=== PATIENT | female | born 1945 | race Caucasian/White ===

== ENCOUNTER 2017-04-29 16:30 | Inpatient (IN) ==
[2017-04-29] MEDS ORDERED: ALBUTEROL/IPRATROPIUM 3 ML NEB RESP TX PRN (17:11)
[2017-04-29] MEDS ORDERED: HYOSCYAMINE 0.125 MG TABLET PO PRN (17:15)
[2017-04-29] MEDS: DEXTROSE 5% NACL 0.45% 1,000 ML IV SCH (17:33)
[2017-04-29] MEDS ORDERED: ESTRADIOL 0.1 MG PATCH (1X WK) TRANSDERM SCH (18:00)
[2017-04-29] MEDS: MEROPENEM 1,000 MG in SYRINGE 1 EACH IV SCH (18:22)
[2017-04-29] MEDS: ONDANSETRON ODT 4 MG TABLET PO SCH (18:22)
[2017-04-29] MEDS: methylPREDNISolone SOD SUC 40 MG/1 ML VIAL IV SCH (18:23)
[2017-04-29 20:19] LABS: Apearance,Urine CLEAR (Clear); Bacteria,Urine Moderate /HPF (Few); Bilirubin,Urine Negative (Negative); Blood, Urine Negative (Negative); Glucose,Urine (UA) Negative (Negative); Ketones,Urine Negative (Negative); Nitrite,Urine Negative (Negative); Protein,Urine Negative; RBC,Urine <1 /HPF (0-4); Squamous Epithelial Cell,Urine Occasional /HPF (0-10); Urine Color Straw (Yellow); Urine Specific Gravity 1.005 (1.001-1.035); Urine Urobilinogen < 2.0 EU/DL (0.2-1.0); WBC,Urine <1 /HPF (0-6)
[2017-04-29] MEDS: ALBUTEROL/IPRATROPIUM 3 ML NEB RESP TX SCH (20:32)
[2017-04-29] MEDS: DOCUSATE SODIUM 100 MG CAPSULE PO SCH (20:50)
[2017-04-29] MEDS: CLORAZEPATE 7.5 MG TABLET PO SCH (20:50)
[2017-04-29] MEDS: TEMAZEPAM 15 MG CAPSULE PO PRN (20:50)
[2017-04-29] MEDS: BUDESONIDE/FORMOTEROL 80-4.5 INHALER 6.9 GM INH SCH (20:50)
[2017-04-29] MEDS: traMADol 50 MG TABLET PO SCH (20:51)
[2017-04-29] MEDS: SERTRALINE 100 MG TABLET PO SCH (20:52)
[2017-04-29] MEDS: ATORVASTATIN 10 MG TABLET PO SCH (20:52)
[2017-04-29 22:12] LABS: Free T4 (Free Thyroxine) 0.87 NG/DL (0.76-1.46); Thyroid Stimulating Hormone 2.7 uIU/ml (0.358-3.74)
[2017-04-29 23:21] LABS: Barbiturates Screen,Urine Negative (Negative); Benzodiazepines Screen,Urine Negative (Negative); Cannabinoid Screen,Urine Negative (Negative); Opiate Screen,Urine Negative (Negative); Phencyclidine Screen,Urine Negative (Negative)
[2017-04-30] MEDS: ONDANSETRON ODT 4 MG TABLET PO SCH ×4 (00:15→18:33)
[2017-04-30] MEDS: ALBUTEROL/IPRATROPIUM 3 ML NEB RESP TX SCH ×4 (00:51→19:42)
[2017-04-30] MEDS: MEROPENEM 1,000 MG in SYRINGE 1 EACH IV SCH ×3 (02:23→18:34)
[2017-04-30] MEDS: methylPREDNISolone SOD SUC 40 MG/1 ML VIAL IV SCH ×2 (05:31→16:30)
[2017-04-30 06:55] LABS: Basophils % 0.2 % (0.0-0.8); Eosinophils % 0.1 % (0.00-10.9); Hematocrit 33.9 VOL% (35.7-47.0); Hemoglobin 11.5 GM/DL (12.0-16.0); Immature Granulocytes % 0.4 %; Immature Granulocytes Absolute 0.03 #; Lymphocytes # 1.2 10*3/uL (1.4-4.0); Lymphocytes % 14.4 % (21.3-54.2); Mean Corpuscular HGB Conc 33.9 GM/DL (32-36); Mean Corpuscular Hemoglobin 32 PG (27-34); Mean Corpuscular Volume 92.9 FL (87-102); Monocytes # 0.5 10*3/uL (0.11-0.8); Monocytes % 6.1 % (1.7-12.7); Neutrophils # 6.4 10*3/uL (1.4-7.4); Neutrophils % 78.8 % (38.7-73.9); Platelet Count 271 T/CUMM (130-400); Red Blood Count 3.65 MC/CUMM (3.8-5.5); Red Cell Distribution Width 13.3 % (9.3-17.3); White Blood Count 8.1 T/CUMM (4-12)
[2017-04-30 07:40] LABS: Calcium 8.6 MG/DL (8.5-10.1); Free T4 (Free Thyroxine) 0.8 NG/DL (0.76-1.46); Magnesium 2.2 MG/DL (1.8-2.4); Osmolality,Calculated 276.7 MOS/KG (273-304); Potassium 4.7 MMOL/L (3.5-5.1); Thyroid Stimulating Hormone 2.82 uIU/ml (0.358-3.74)
[2017-04-30] MEDS ORDERED: ESTRADIOL 0.1 MG PATCH (1X WK) TRANSDERM SCH (09:00)
[2017-04-30] MEDS: CLORAZEPATE 7.5 MG TABLET PO SCH ×3 (10:25→21:54)
[2017-04-30] MEDS: PANTOPRAZOLE 40 MG TABLET PO SCH (10:26)
[2017-04-30] MEDS: traMADol 50 MG TABLET PO SCH ×2 (10:26→21:55)
[2017-04-30] MEDS: LEVOTHYROXINE 75 MCG TABLET PO SCH (10:27)
[2017-04-30] MEDS: ISOSORBIDE MONONITRATE 60 MG TABLET PO SCH (10:27)
[2017-04-30] MEDS: MONTELUKAST 10 MG TABLET PO SCH (10:27)
[2017-04-30] MEDS: BUDESONIDE/FORMOTEROL 80-4.5 INHALER 6.9 GM INH SCH ×2 (10:37→21:58)
[2017-04-30] MEDS: FLUTICASONE 50 MCG NASAL SPRAY 16 GM BOTTLE BOTH NARES SCH (10:37)
[2017-04-30] MEDS: DEXTROSE 5% NACL 0.45% 1,000 ML IV SCH (10:39)
[2017-04-30] MEDS ORDERED: GENTAMICIN INJ 80 MG in PREMIX 1 EACH IV ONE (14:00)
[2017-04-30] MEDS ORDERED: BISACODYL 5 MG TABLET PO ONE (21:12)
[2017-04-30] MEDS: TEMAZEPAM 15 MG CAPSULE PO PRN (21:54)
[2017-04-30] MEDS: DOCUSATE SODIUM 100 MG CAPSULE PO SCH (21:55)
[2017-04-30] MEDS: ATORVASTATIN 10 MG TABLET PO SCH (21:55)
[2017-04-30] MEDS: SERTRALINE 100 MG TABLET PO SCH (21:58)
[2017-05-01] MEDS: ONDANSETRON ODT 4 MG TABLET PO SCH ×4 (00:27→17:50)
[2017-05-01] MEDS: ALBUTEROL/IPRATROPIUM 3 ML NEB RESP TX SCH ×4 (00:35→19:51)
[2017-05-01] MEDS: DEXTROSE 5% NACL 0.45% 1,000 ML IV SCH ×2 (02:26→20:33)
[2017-05-01] MEDS: MEROPENEM 1,000 MG in SYRINGE 1 EACH IV SCH ×3 (02:28→18:28)
[2017-05-01] MEDS: methylPREDNISolone SOD SUC 40 MG/1 ML VIAL IV SCH ×2 (06:31→17:49)
[2017-05-01] MEDS: LEVOTHYROXINE 75 MCG TABLET PO SCH (06:31)
[2017-05-01 07:02] LABS: Basophils % 0.1 % (0.0-0.8); Eosinophils % 0.1 % (0.00-10.9); Hematocrit 32.7 VOL% (35.7-47.0); Hemoglobin 11.1 GM/DL (12.0-16.0); Immature Granulocytes % 0.7 %; Immature Granulocytes Absolute 0.07 #; Lymphocytes # 1.7 10*3/uL (1.4-4.0); Lymphocytes % 16.5 % (21.3-54.2); Mean Corpuscular HGB Conc 33.9 GM/DL (32-36); Mean Corpuscular Hemoglobin 32 PG (27-34); Mean Corpuscular Volume 93.4 FL (87-102); Mean Platelet Volume 10.3 FL (9.6-12.0); Monocytes # 0.7 10*3/uL (0.11-0.8); Monocytes % 6.6 % (1.7-12.7); Neutrophils # 7.9 10*3/uL (1.4-7.4); Platelet Count 293 T/CUMM (130-400); Red Cell Distribution Width 13.7 % (9.3-17.3); White Blood Count 10.4 T/CUMM (4-12)
[2017-05-01] MEDS: BUDESONIDE/FORMOTEROL 80-4.5 INHALER 6.9 GM INH SCH ×2 (09:27→20:39)
[2017-05-01] MEDS: FLUTICASONE 50 MCG NASAL SPRAY 16 GM BOTTLE BOTH NARES SCH (09:27)
[2017-05-01] MEDS: ISOSORBIDE MONONITRATE 60 MG TABLET PO SCH (09:27)
[2017-05-01] MEDS: PANTOPRAZOLE 40 MG TABLET PO SCH (09:27)
[2017-05-01] MEDS: MONTELUKAST 10 MG TABLET PO SCH (09:27)
[2017-05-01] MEDS: CLORAZEPATE 7.5 MG TABLET PO SCH ×3 (09:27→20:42)
[2017-05-01] MEDS: traMADol 50 MG TABLET PO SCH ×2 (09:27→20:35)
[2017-05-01] MEDS ORDERED: BISACODYL 10 MG SUPP RECTAL ONE (12:15)
[2017-05-01] MEDS ORDERED: GENTAMICIN INJ 80 MG in PREMIX 1 EACH IV ONE (13:01)
[2017-05-01] MEDS ORDERED: MAGNESIUM HYDROXIDE SUSP 30 ML UDCUP PO PRN (18:59)
[2017-05-01] MEDS: TEMAZEPAM 15 MG CAPSULE PO PRN (20:34)
[2017-05-01] MEDS: ATORVASTATIN 10 MG TABLET PO SCH (20:36)
[2017-05-01] MEDS: DOCUSATE SODIUM 100 MG CAPSULE PO SCH (20:36)
[2017-05-01] MEDS: SERTRALINE 100 MG TABLET PO SCH (20:36)
[2017-05-02] MEDS: ONDANSETRON ODT 4 MG TABLET PO SCH ×5 (00:24→23:59)
[2017-05-02] MEDS: ALBUTEROL/IPRATROPIUM 3 ML NEB RESP TX SCH ×5 (00:25→23:56)
[2017-05-02] MEDS: MEROPENEM 1,000 MG in SYRINGE 1 EACH IV SCH ×3 (02:43→17:25)
[2017-05-02] MEDS: methylPREDNISolone SOD SUC 40 MG/1 ML VIAL IV SCH ×2 (05:04→17:25)
[2017-05-02] MEDS: LEVOTHYROXINE 75 MCG TABLET PO SCH (06:37)
[2017-05-02] MEDS ORDERED: MAGNESIUM CITRATE 300 ML BOTTLE PO ONE (08:48)
[2017-05-02] MEDS ORDERED: SODIUM PHOSPHATE ENEMA 133 ML BOTTLE RECTAL ONE (08:48)
[2017-05-02] MEDS: BUDESONIDE/FORMOTEROL 80-4.5 INHALER 6.9 GM INH SCH ×2 (09:07→21:01)
[2017-05-02] MEDS: PANTOPRAZOLE 40 MG TABLET PO SCH (09:07)
[2017-05-02] MEDS: CLORAZEPATE 7.5 MG TABLET PO SCH ×3 (09:07→21:01)
[2017-05-02] MEDS: ISOSORBIDE MONONITRATE 60 MG TABLET PO SCH (09:07)
[2017-05-02] MEDS: MONTELUKAST 10 MG TABLET PO SCH (09:07)
[2017-05-02] MEDS ORDERED: BISACODYL 10 MG SUPP RECTAL PRN (09:46)
[2017-05-02] MEDS: traMADol 50 MG TABLET PO SCH ×2 (09:50→21:01)
[2017-05-02] MEDS: FLUTICASONE 50 MCG NASAL SPRAY 16 GM BOTTLE BOTH NARES SCH (11:16)
[2017-05-02] MEDS: DEXTROSE 5% NACL 0.45% 1,000 ML IV SCH (15:07)
[2017-05-02] MEDS: TEMAZEPAM 15 MG CAPSULE PO PRN (21:00)
[2017-05-02] MEDS: DOCUSATE SODIUM 100 MG CAPSULE PO SCH (21:00)
[2017-05-02] MEDS: SERTRALINE 100 MG TABLET PO SCH (21:01)
[2017-05-02] MEDS: ATORVASTATIN 10 MG TABLET PO SCH (21:01)
[2017-05-03] MEDS: MEROPENEM 1,000 MG in SYRINGE 1 EACH IV SCH ×3 (01:49→18:03)
[2017-05-03] MEDS: DEXTROSE 5% NACL 0.45% 1,000 ML IV SCH ×3 (01:54→20:41)
[2017-05-03] MEDS: methylPREDNISolone SOD SUC 40 MG/1 ML VIAL IV SCH ×2 (06:05→18:02)
[2017-05-03] MEDS: ONDANSETRON ODT 4 MG TABLET PO SCH ×4 (06:05→23:08)
[2017-05-03] MEDS: LEVOTHYROXINE 75 MCG TABLET PO SCH (06:05)
[2017-05-03] MEDS: ALBUTEROL/IPRATROPIUM 3 ML NEB RESP TX SCH ×3 (07:28→19:40)
[2017-05-03] MEDS: ISOSORBIDE MONONITRATE 60 MG TABLET PO SCH (09:01)
[2017-05-03] MEDS: traMADol 50 MG TABLET PO SCH ×2 (09:01→20:39)
[2017-05-03] MEDS: PANTOPRAZOLE 40 MG TABLET PO SCH (09:01)
[2017-05-03] MEDS: MONTELUKAST 10 MG TABLET PO SCH (09:01)
[2017-05-03] MEDS: CLORAZEPATE 7.5 MG TABLET PO SCH ×3 (09:01→20:38)
[2017-05-03] MEDS: FLUTICASONE 50 MCG NASAL SPRAY 16 GM BOTTLE BOTH NARES SCH (09:03)
[2017-05-03] MEDS: BUDESONIDE/FORMOTEROL 80-4.5 INHALER 6.9 GM INH SCH ×2 (09:03→20:40)
[2017-05-03] MEDS: ATORVASTATIN 10 MG TABLET PO SCH (20:38)
[2017-05-03] MEDS: SERTRALINE 100 MG TABLET PO SCH (20:39)
[2017-05-03] MEDS: TEMAZEPAM 15 MG CAPSULE PO PRN (20:39)
[2017-05-03] MEDS: DOCUSATE SODIUM 100 MG CAPSULE PO SCH (20:40)
[2017-05-04] MEDS: ALBUTEROL/IPRATROPIUM 3 ML NEB RESP TX SCH ×4 (01:10→19:41)
[2017-05-04] MEDS: MEROPENEM 1,000 MG in SYRINGE 1 EACH IV SCH ×2 (01:37→09:43)
[2017-05-04] MEDS: LEVOTHYROXINE 75 MCG TABLET PO SCH (06:12)
[2017-05-04] MEDS: methylPREDNISolone SOD SUC 40 MG/1 ML VIAL IV SCH ×2 (06:12→18:17)
[2017-05-04] MEDS: ONDANSETRON ODT 4 MG TABLET PO SCH ×4 (06:12→23:34)
[2017-05-04] MEDS ORDERED: ALUMINUM/MAGNES/SIMETH MAX STR 30 ML UDCUP PO PRN (09:34)
[2017-05-04] MEDS: FLUTICASONE 50 MCG NASAL SPRAY 16 GM BOTTLE BOTH NARES SCH (09:40)
[2017-05-04] MEDS: ISOSORBIDE MONONITRATE 60 MG TABLET PO SCH (09:40)
[2017-05-04] MEDS: BUDESONIDE/FORMOTEROL 80-4.5 INHALER 6.9 GM INH SCH ×2 (09:40→21:30)
[2017-05-04] MEDS: PANTOPRAZOLE 40 MG TABLET PO SCH (09:41)
[2017-05-04] MEDS: CLORAZEPATE 7.5 MG TABLET PO SCH ×3 (09:41→21:30)
[2017-05-04] MEDS: MONTELUKAST 10 MG TABLET PO SCH (09:41)
[2017-05-04] MEDS: traMADol 50 MG TABLET PO SCH ×2 (09:42→21:31)
[2017-05-04] MEDS: DEXTROSE 5% NACL 0.45% 1,000 ML IV SCH ×2 (12:41→21:22)
[2017-05-04] MEDS: DOCUSATE SODIUM 100 MG CAPSULE PO SCH (21:30)
[2017-05-04] MEDS: CEFUROXIME 500 MG TABLET PO SCH (21:30)
[2017-05-04] MEDS: ATORVASTATIN 10 MG TABLET PO SCH (21:31)
[2017-05-04] MEDS: SERTRALINE 100 MG TABLET PO SCH (21:31)
[2017-05-04] MEDS: TEMAZEPAM 15 MG CAPSULE PO PRN (21:31)
[2017-05-05] MEDS: ALBUTEROL/IPRATROPIUM 3 ML NEB RESP TX SCH ×3 (00:46→13:50)
[2017-05-05] MEDS: DEXTROSE 5% NACL 0.45% 1,000 ML IV SCH ×2 (05:22→09:30)
[2017-05-05] MEDS: methylPREDNISolone SOD SUC 40 MG/1 ML VIAL IV SCH (05:23)
[2017-05-05] MEDS: ONDANSETRON ODT 4 MG TABLET PO SCH ×2 (05:23→12:09)
[2017-05-05 09:15] LABS: Basophils % 0.2 % (0.0-0.8); Eosinophils % 0.1 % (0.00-10.9); Hematocrit 37.3 VOL% (35.7-47.0); Hemoglobin 12.7 GM/DL (12.0-16.0); Immature Granulocytes % 1.8 %; Immature Granulocytes Absolute 0.27 #; Lymphocytes # 1.5 10*3/uL (1.4-4.0); Lymphocytes % 9.5 % (21.3-54.2); Mean Corpuscular Hemoglobin 32 PG (27-34); Mean Corpuscular Volume 93.5 FL (87-102); Mean Platelet Volume 10.2 FL (9.6-12.0); Monocytes # 0.8 10*3/uL (0.11-0.8); Monocytes % 5.4 % (1.7-12.7); Neutrophils # 12.7 10*3/uL (1.4-7.4); Platelet Count 316 T/CUMM (130-400); Red Blood Count 3.99 MC/CUMM (3.8-5.5); Red Cell Distribution Width 13.7 % (9.3-17.3); White Blood Count 15.3 T/CUMM (4-12)
[2017-05-05] MEDS: traMADol 50 MG TABLET PO SCH (09:31)
[2017-05-05] MEDS: MONTELUKAST 10 MG TABLET PO SCH (09:31)
[2017-05-05] MEDS: PANTOPRAZOLE 40 MG TABLET PO SCH (09:31)
[2017-05-05] MEDS: CEFUROXIME 500 MG TABLET PO SCH (09:31)
[2017-05-05] MEDS: ISOSORBIDE MONONITRATE 60 MG TABLET PO SCH (09:32)
[2017-05-05] MEDS: FLUTICASONE 50 MCG NASAL SPRAY 16 GM BOTTLE BOTH NARES SCH (09:33)
[2017-05-05] MEDS: BUDESONIDE/FORMOTEROL 80-4.5 INHALER 6.9 GM INH SCH (09:33)
[2017-05-05] MEDS: LEVOTHYROXINE 75 MCG TABLET PO SCH (09:35)
[2017-05-05 09:44] LABS: Calcium 8.8 MG/DL (8.5-10.1); Potassium 4.5 MMOL/L (3.5-5.1)
[2017-05-05 16:14] VITALS: BP 130/76
== END 2017-05-05 15:36 | disposition home or self-care (01) | DRG 880 ==
LOC: N.5E 16:48
PROVIDERS: ADMIT Internal Medicine Pulmonary Disease; ATTEND Internal Medicine Pulmonary Disease